=== PATIENT | male | born 1955 | race Caucasian/White ===

== ENCOUNTER → 2019-10-09 | Outpatient (CLI) | payer MEDICARE ==
[~2019-10-09] MED LIST: ABILIFY MYCITE5 MG PO; ALBU3IS INH; ALBU90OI INH; Acyclovir800 MG PO; FISH1000 PO; Flovent 220 Ora12 GM INH; HYDACE5 PO; LEVFLO500 PO; LISI20 PO; MONT10T PO; MULVITMIND PO; NAPR220 PO; PRED20 PO; PROAIR RESPICL90 MCG INH; Triamcinolone A15 G2
== END | disposition home or self-care (01) ==
LOC: LAB SHORT 19:15 → OLS 19:15
DX: R63.4 Abnormal weight loss (principal); A04.8 Other specified bacterial intestinal infections; B96.81 Helicobacter pylori [H. pylori] as the cause of diseases classified elsewhere
CPT/HCPCS: 87338